=== PATIENT | male | born 1975 | race Caucasian/White ===

== ENCOUNTER 2016-10-20 11:14 | Emergency (ER) | payer SELFPAY ==
[~2016-10-20] VITALS: Wt 106.3 kg
[~2016-10-20 11:14] MED LIST: ALPR0.5T PO; CARI350T PO; DOCU-144 PO; HYDR-762 PO; IBUP800T25 PO; METH-70 PO; NAPR-688 PO; OMEP20CA9 PO; OXYC-279 PO; ROPI2TAB3 PO; TEMA30CA PO; TRAZ100T15 PO; ZOC20 PO
== END 2016-10-20 16:21 | disposition left against medical advice (07) ==
LOC: E/R 11:14
DX: Z53.21 Procedure and treatment not carried out due to patient leaving prior to being seen by health care provider (principal)

== ENCOUNTER 2017-01-13 12:15 | Emergency (ER) | payer SELFPAY ==
[~2017-01-13] VITALS: Ht 180.3 cm; Wt 110.0 kg
[~2017-01-13 12:15] MED LIST changes: +SIMV20TA2 PO; -ZOC20 PO
[2017-01-13 12:17] VITALS: Ht 180.3 cm; Wt 110.0 kg
== END 2017-01-13 18:40 | disposition left against medical advice (07) ==
LOC: E/R 12:15
DX: Z53.21 Procedure and treatment not carried out due to patient leaving prior to being seen by health care provider (principal)

== ENCOUNTER 2017-01-20 11:25 | Emergency (ER) | payer OTHER ==
[~2017-01-20] VITALS: Ht 165.1 cm; Wt 118.0 kg
[2017-01-20 11:28] VITALS: Ht 165.1 cm; Wt 118.0 kg
[2017-01-20] MEDS ORDERED: HYDR-902 PO (13:24)
[2017-01-20] MEDS ORDERED: HYDROCODONE/APAP (10/325) TAB PO ONE (13:30)
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
== END 2017-01-20 13:33 | disposition home or self-care (01) ==
LOC: FTE 11:25
DX: M54.40 Lumbago with sciatica, unspecified side (principal); F17.210 Nicotine dependence, cigarettes, uncomplicated
CPT/HCPCS: 99283

== ENCOUNTER 2017-01-25 19:02 | Emergency (ER) | payer OTHER ==
[~2017-01-25] VITALS: Ht 180.3 cm; Wt 107.7 kg
[~2017-01-25 19:02] MED LIST changes: +HYDR-902 PO
[2017-01-25 19:21] VITALS: Ht 180.3 cm; Wt 107.7 kg
[2017-01-25] MEDS ORDERED: KETOROLAC 60 MG INJ IM STA (20:58)
[2017-01-25] MEDS ORDERED: HYDR-902 PO (22:07)
--- NOTE | 2017-01-25 22:17 | ERD ---
ER Documentation Chief Complaint Date/Time DATE: 01/25/17 TIME: 22:11 Chief Complaint Pt with chronic back pain and neck pain , worst last 2 days HPI This is a 41-year-old male that presents to the ER with chronic back pain. States that back pain is severe and constant, he has rounded this Fred. Patient went to his primary care doctor however his primary care doctor was out of town. Patient denies any urinary bowel incontinence. He denies any fevers or chills. He denies any saddle like anesthesia. Patient has been trying over- the-counter pain medications for his pain however has not worked. ROS 12 point review of systems was done, all negative except per HPI. Medications Home Meds Active Scripts Hydrocodone/Acetaminophen (Fred 10-325 Tablet) 1 Each Tablet, 1 TAB PO Q6H Y for PAIN, #20 TAB Prov:SCOTT IZAGUIRRE 01/25/17 Hydrocodone/Acetaminophen (Fred 10-325 Tablet) 1 Each Tablet, 1 TAB PO Q6H Y for PAIN, #14 TAB Prov:FRANKY DE LEÓN MD 01/20/17 Methocarbamol* (Robaxin*) 750 Mg Tablet, 750 MG PO Q6H Y for MUSCLE SPASMS, #20 TAB Prov:NICK PEDRAZA DO 09/02/16 Naproxen* (Naproxen*) 500 Mg Tablet, 500 MG PO BID, #20 TAB Prov:NICK PEDRAZA DO 09/02/16 Oxycodone HCl/Acetaminophen (Percocet 5-325 mg Tablet) 1 Each Tablet, 1 EACH PO Q6, #20 TAB Prov:NICK PEDRAZA DO 09/02/16 Temazepam* (Temazepam*) 30 Mg Capsule, 30 MG PO HS Y for INSOMNIA, #10 CAP Prov:CHARAN JAIN PA-C 07/07/16 Alprazolam* (Xanax*) 0.5 Mg Tab, 0.5 MG PO QHS Y for ANXIETY, #10 TAB Prov:CHARAN JAIN PA-C 07/07/16 Ropinirole Hcl* (Ropinirole Hcl*) 2 Mg Tablet, 2 MG PO QHS, #10 TAB Prov:CHARAN JAIN PA-C 07/07/16 Trazodone Hcl* (Trazodone Hcl*) 100 Mg Tablet, 100 MG PO QHS, #30 TAB Prov:CHARAN JAIN PA-C 07/07/16 Docusate Sodium* (Colace*) 100 Mg Capsule, 100 MG PO TID, #30 CAP Prov:DMITRIYSCOTT Dayanna 03/05/16 Ibuprofen* (Motrin*) 800 Mg Tab, 800 MG PO Q6, #30 TAB Prov:CHARAN JAIN PA-C 03/30/15 Reported Medications Omeprazole* (Prilosec*) 20 Mg Capsule.dr, 20 MG PO DAILY, CAP 09/14/14 Carisoprodol* (Soma*) 350 Mg Tablet, 350 MG PO TID Y for PAIN AND/OR INFLAMMATION, TAB 09/14/14 Hydrocodone Bit-Acetaminophen* (Fred*) 10-325 Mg Tablet, 1 TAB PO TID Y for PAIN, TAB 07/20/14 Simvastatin (Simvastatin) 20 Mg Tablet, 20 MG PO HS, TAB 07/20/14 Allergies Allergies: Coded Allergies: Penicillins (Verified Allergy, Severe, ANAPHALAXIS, 01/20/17) PMhx/Soc History of Surgery: No Anesthesia Reaction: No Hx Neurological Disorder: Yes (SEIZURES, pt uses electric wheelchair) Hx Respiratory Disorders: No Hx Cardiac Disorders: Yes (HTN, HIGH CHOL) Hx Psychiatric Problems: Yes (ANXIETY) Hx Miscellaneous Medical Probl: Yes (Multiple herniated disc in low back, Knee pain, neck prob; uti) Hx Alcohol Use: Yes (social) Hx Substance Use: No Hx Tobacco Use: Yes (3 cig/day) Smoking Status: Current every day smoker Physical Exam Vitals Vital Signs Date Time Temp Pulse Resp B/P Pulse Ox O2 Delivery O2 Flow Rate FiO2 01/25/17 19:21 99.6 104 14 131/86 98 Physical Exam GENERAL: Patient is in wheelchair, in no acute distress. NECK: C-spine is soft and supple. There is no cervical lymphadenopathy. CHEST: Clear to auscultation bilaterally. There are no rales, wheezes or rhonchi. HEART: Regular rate and rhythm. No murmurs, clicks, rubs or gallops. ABDOMEN: Soft, nontender and nondistended BACK: No midline or flank tenderness. Tense paraspinal muscles. Negative leg raise test. No step- offs. EXTREMITIES: Equal pulses bilaterally. There is no peripheral clubbing, cyanosis or edema. No focal swelling or erythema. Full range of motion. Grossly neurovascularly intact. NEURO: Alert and oriented. Cranial nerves II through XII are intact. SKIN: There is no apparent rash or petechia. The skin is warm and dry. Results 24 hrs Current Medications Medications (Trade) Dose Ordered Sig/Alexander Route PRN Reason Start Time Stop Time Status Last Admin Dose Admin Ketorolac Tromethamine (Toradol) 60 mg ONCE STAT IM 01/25/17 20:58 01/25/17 20:59 DC 01/25/17 21:09 Procedures/MDM Differential Diagnosis includes but is not limited to back strain, vertebral fracture, epidural abscess, cauda equina, herniated disc, AAA rupture, kidney stones, UTI, pyelonephritis. Patient does have chronic back pain. I did review patient's cures report and patient gets Fred once a month written by the same doctor and feels at the same pharmacy. Patient was given a shot of Toradol in the ER without any complications. He will be sent with Fred. Needs to follow-up with his primary care doctor for any refills. He should return to the ER for worsening symptoms. My medical decision making was shared with the patient he understands and agrees with plan. Departure Diagnosis: Primary Impression: Back pain Condition: Stable Patient Instructions: Back Pain (Acute Or Chronic) Referrals: MARNIE REGAN MD (PCP) Additional Instructions: Call your primary care doctor TOMORROW for an appointment during the next 1-2 days.See the doctor sooner or return here if your condition worsens before your appointment time. SCOTT IZAGUIRRE January 25, 2017 22:17
== END 2017-01-25 22:25 | disposition home or self-care (01) ==
LOC: FTE 19:02
DX: M54.9 Dorsalgia, unspecified (principal); I10 Essential (primary) hypertension; F17.210 Nicotine dependence, cigarettes, uncomplicated
CPT/HCPCS: 96372; J1885; Z7502

== ENCOUNTER 2017-01-29 13:35 | Emergency (ER) | payer OTHER ==
[~2017-01-29] VITALS: Ht 180.3 cm; Wt 106.8 kg
[2017-01-29 13:39] VITALS: Ht 180.3 cm; Wt 106.8 kg
[2017-01-29] MEDS ORDERED: ONDANSETRON 4 MG INJ IV STA (14:00)
[2017-01-29] MEDS ORDERED: morphine 4 MG/ML VIAL IV STA (14:00)
[2017-01-29] MEDS ORDERED: SOD CHLORIDE 0.9% 1,000 ML IV STA (14:00)
[2017-01-29] MEDS ORDERED: BARIUM SULF 2% 450 ML BTL (BERRY SMOOTHIE) PO ONE (14:30)
[2017-01-29 14:55] LABS: ADD SCAN DIFF NO
[2017-01-29 14:57] LABS: BASOPHILS % 0.3 % (0.0-2.0); EOSINOPHILS % 0.5 % (0.0-7.0); HEMATOCRIT 41.9 % (42.0-52.0); HEMOGLOBIN 14.3 g/dl (14.0-18.0); LYMPHOCYTES # 2.1 10^3/ul (0.8-2.9); LYMPHOCYTES % 23.7 % (15.0-51.0); MEAN CORPUSCULAR HEMOGLOBIN 32.9 pg (29.0-33.0); MEAN CORPUSCULAR HGB CONC 34.1 g/dl (32.0-37.0); MEAN CORPUSCULAR VOLUME 96.3 fl (82.0-101.0); MONOCYTE # 0.5 10^3/ul (0.3-0.9); MONOCYTES % 6.2 % (0.0-11.0); NEUTROPHILS % 68.5 % (39.0-77.0); PLATELET COUNT 350 10^3/UL (140-415); RED BLOOD COUNT 4.35 10^6/ul (4.70-6.10); RED CELL DISTRIBUTION WIDTH 12.2 % (11.5-14.5); WHITE BLOOD COUNT 8.7 10^3/ul (4.8-10.8)
--- NOTE | 2017-01-29 15:10 | RADRPT ---
PROCEDURE: CT Abdomen and Pelvis without contrast. CLINICAL INDICATION: Abdominal pain TECHNIQUE: CT of the abdomen and pelvis was performed on a multi-detector scanner without IV contr ast. Coronal and sagittal images were reformatted from the axial data set. One or more of the foll owing dose reduction techniques were used: automated exposure control, adjustment of the mA and/or kV according to patient size, use of iterative reconstruction technique. CTDI = 23.56 mGy. DLP = 16 02.1 mGy-cm. COMPARISON: CT, 03/05/2016 FINDINGS: CT abdomen: The lung bases are clear. The heart size is normal, without pericardial effusion. Coronary arteria l calcification is noted. Liver, gallbladder, biliary tree, pancreas, spleen, adrenal glands and ri ght kidney are unremarkable. Small nonobstructive left renal calculus is identified, without ureter olithiasis or obstructive uropathy. The stomach is grossly unremarkable. The aorta is of normal caliber. There is no retroperitoneal lymphadenopathy. The kelton hepatis reg ion is clear. CT pelvis: No bowel obstruction, free intraperitoneal air or abscess is identified. There is no diverticulosis , diverticulitis or colitis. The appendix is well visualized and normal. Urinary bladder is unrema rkable. No pelvic mass, free fluid or lymphadenopathy is identified. Fat containing left inguinal hernia is again noted. The surrounding osseous structures are remarkable for degenerative spondylosis of the spine. No ost eolytic or osteoblastic lesion is detected. IMPRESSION: 1. Coronary arterial calcification is noted. 2. Small nonobstructive left renal calculus is seen, without ureterolithiasis or obstructive uropat hy. 3. Fat-containing left inguinal hernia is noted, without incarceration. 4. No mass, lymphadenopathy, or focal acute inflammatory process is identified. RPTAT: RR .Carlito Gonzalez MD, MD Date Time Electronically viewed and signed by .Carlito Gonzalez MD, MD on 01/29/2017 15:10 .R/
[2017-01-29 15:11] LABS: ALBUMIN 4.9 g/dl (3.3-4.9)
[2017-01-29 15:12] LABS: POTASSIUM 3.6 mmol/L (3.5-5.1)
[2017-01-29 15:14] LABS: ALBUMIN/GLOBULIN RATIO 1.28; BILIRUBIN,INDIRECT 0.2 mg/dl (0-1.1); BILIRUBIN,TOTAL 0.2 mg/dl (0.2-1.3); CALCIUM 9.9 mg/dl (8.4-10.2); CREATININE 0.71 mg/dl (0.61-1.24); TOTAL PROTEIN 8.7 g/dl (6.1-8.1)
[2017-01-29] MEDS ORDERED: KETOROLAC 30 MG INJ IV STA (15:14)
[2017-01-29 15:17] LABS: URINE BLOOD (Dip) POC Trace-lysed (NEGATIVE)
[2017-01-29 15:28] LABS: ADD UMIC YES; URINE BILIRUBIN (Dip) NEGATIVE (NEGATIVE); URINE BLOOD (Dip) TRACE (NEGATIVE); URINE COLOR LT. YELLOW (YELLOW); URINE GLUCOSE (Dip) NEGATIVE (NEGATIVE); URINE KETONES (Dip) NEGATIVE (NEGATIVE); URINE LEUKOCYTE ESTERASE (Dip) NEGATIVE (NEGATIVE); URINE NITRITE (Dip) NEGATIVE (NEGATIVE); URINE TOTAL PROTEIN (Dip) NEGATIVE (NEGATIVE); URINE UROBILINOGEN (Dip) 0.2 E.U./dL (0.1-1.0)
[2017-01-29 15:38] LABS: URINE RBCS 0-2 /HPF (0)
[2017-01-29] MEDS ORDERED: morphine 10 MG INJ IV ONE (16:00)
--- NOTE | 2017-01-29 16:03 | ERD ---
ER Documentation Chief Complaint Date/Time DATE: 01/29/17 TIME: 15:52 Chief Complaint AP X [address] LABOY HPI 41-year-old male patient with a past medical history of chronic back pain, HTN, hypercholesterolemia presents to the ED complaining of right lower abdominal pain as well as right testicular pain that worsened in the last 4 days. Patient reports that his abdominal pain started about 6 months ago intermittently. States that he went to follow-up with Dr. Laboy his senior procurement specialist and was sent here to obtain a CT of the abdomen and pelvis. Reports that he has some nausea and a few episodes of nonbilious nonbloody vomiting. Denies any fever, diarrhea, chest pain, shortness of breath, penile discharge, dysuria, urgency, frequency, hematuria. ROS All systems reviewed and are negative except as per history of present illness. Medications Home Meds Active Scripts Hydrocodone/Acetaminophen ([place] 10-325 Tablet) 1 Each Tablet, 1 TAB PO Q6H Y for PAIN, #10 TAB Prov:SARATH HERRERA DO 02/01/17 Hydrocodone/Acetaminophen ([place] 10-325 Tablet) 1 Each Tablet, 1 TAB PO Q6H Y for PAIN, #7 TAB Prov:GARIMA NGO PA-C 01/29/17 Ondansetron (Ondansetron Odt) 4 Mg Tab.rapdis, 4 MG PO Q6H Y for NAUSEA AND/OR VOMITING, #10 TAB Prov:GARIMA NGO PA-C 01/29/17 Hydrocodone/Acetaminophen ([place] 10-325 Tablet) 1 Each Tablet, 1 TAB PO Q6H Y for PAIN, #20 TAB Prov:SCOTT IZAGUIRRE 01/25/17 Hydrocodone/Acetaminophen ([place] 10-325 Tablet) 1 Each Tablet, 1 TAB PO Q6H Y for PAIN, #14 TAB Prov:FRANKY LONDONO MD 01/20/17 Methocarbamol* (Robaxin*) 750 Mg Tablet, 750 MG PO Q6H Y for MUSCLE SPASMS, #20 TAB Prov:NICK PEDRAZA DO 09/02/16 Naproxen* (Naproxen*) 500 Mg Tablet, 500 MG PO BID, #20 TAB Prov:NICK PEDRAZA DO 09/02/16 Oxycodone HCl/Acetaminophen (Percocet 5-325 mg Tablet) 1 Each Tablet, 1 EACH PO Q6, #20 TAB Prov:NICK PEDRAZA DO 09/02/16 Temazepam* (Temazepam*) 30 Mg Capsule, 30 MG PO HS Y for INSOMNIA, #10 CAP Prov:CHARAN JAINC 07/07/16 Alprazolam* (Xanax*) 0.5 Mg Tab, 0.5 MG PO QHS Y for ANXIETY, #10 TAB Prov:CHARAN JAINC 07/07/16 Ropinirole Hcl* (Ropinirole Hcl*) 2 Mg Tablet, 2 MG PO QHS, #10 TAB Prov:CHARAN JAIN PA-C 07/07/16 Trazodone Hcl* (Trazodone Hcl*) 100 Mg Tablet, 100 MG PO QHS, #30 TAB Prov:CHARAN JAIN PA-C 07/07/16 Docusate Sodium* (Colace*) 100 Mg Capsule, 100 MG PO TID, #30 CAP Prov:SCOTT IZAGUIRRE 03/05/16 Ibuprofen* (Motrin*) 800 Mg Tab, 800 MG PO Q6, #30 TAB Prov:CHARAN JAIN PA-C 03/30/15 Reported Medications Omeprazole* (Prilosec*) 20 Mg Capsule.dr, 20 MG PO DAILY, CAP 09/14/14 Carisoprodol* (Soma*) 350 Mg Tablet, 350 MG PO TID Y for PAIN AND/OR INFLAMMATION, TAB 09/14/14 Hydrocodone Bit-Acetaminophen* ([place]*) 10-325 Mg Tablet, 1 TAB PO TID Y for PAIN, TAB 07/20/14 Simvastatin (Simvastatin) 20 Mg Tablet, 20 MG PO HS, TAB 07/20/14 Allergies Allergies: Coded Allergies: Penicillins (Verified Allergy, Severe, ANAPHALAXIS, 01/29/17) PMhx/Soc History of Surgery: No Anesthesia Reaction: No Hx Neurological Disorder: Yes (SEIZURES, pt uses electric wheelchair) Hx Respiratory Disorders: No Hx Cardiac Disorders: Yes (HTN, HIGH CHOL) Hx Psychiatric Problems: Yes (ANXIETY) Hx Miscellaneous Medical Probl: Yes (Multiple herniated disc in low back, Knee pain, neck prob; uti) Hx Alcohol Use: Yes (social) Hx Substance Use: No Hx Tobacco Use: Yes (3 cig/day) Smoking Status: Light tobacco smoker Physical Exam Vitals Vital Signs Date Time Temp Pulse Resp B/P Pulse Ox O2 Delivery O2 Flow Rate FiO2 01/29/17 13:39 99.1 115 22 165/88 96 Physical Exam Const: [id number], well-nourished. In no acute distress. Head: Atraumatic, normocephalic Eyes: Normal Conjunctiva without injection. No purulent discharge. ENT: Normal external ear, nose. Moist oropharynx without tonsillar exudates. Non -erythematous pharynx. Uvula midline. No drooling. No trismus. Neck: No cervical midline tenderness. Full range of motion. No meningismus. No cervical lymphadenopathy. No JVD. Resp: Clear to auscultation bilaterally. No wheezing, rhonchi, rales, or crackles. No accessory muscle use. No retractions. Cardio: Regular rate and rhythm. No murmurs, rubs or gallops. Abd: Soft, right groin tenderness, right lower quadrant tenderness, non distended. Normal bowel sounds. No palpable masses. No rebound tenderness. No guarding. Negative McBurney's point. Negative psoas sign. Negative obturator sign. : Circumcised penis. No paraphimosis. No phimosis. No hernias. No warmth to touch. No erythema. Slight tenderness palpation of the right testicle. Skin: No petechiae or rashes Back: No midline tenderness. No CVA tenderness. Ext: No cyanosis, or edema. Neur: Awake and alert. Normal gait. Normal coordination. Psych: Normal Mood and Affect Results 24 hrs Laboratory Tests Test 01/29/17 14:25 01/29/17 15:05 01/29/17 15:18 White Blood Count 8.710^3/ul Red Blood Count 4.3510^6/ul Hemoglobin 14.3g/dl Hematocrit 41.9% Mean Corpuscular Volume 96.3fl Mean Corpuscular Hemoglobin 32.9pg Mean Corpuscular Hemoglobin Concent 34.1g/dl Red Cell Distribution Width 12.2% Platelet Count 37809^3/UL Mean Platelet Volume 10.0fl Neutrophils % 68.5% Lymphocytes % 23.7% Monocytes % 6.2% Eosinophils % 0.5% Basophils % 0.3% Nucleated Red Blood Cells % 0.0/100WBC Neutrophils # 6.010^3/ul Lymphocytes # 2.110^3/ul Monocytes # 0.510^3/ul Eosinophils # 0.010^3/ul Basophils # 0.010^3/ul Nucleated Red Blood Cells # 0.010^3/ul Sodium Level 139mmol/L Potassium Level 3.6mmol/L Chloride Level 97mmol/L Carbon Dioxide Level 25mmol/L Anion Gap 21 Blood Urea Nitrogen 8mg/dl Creatinine 0.71mg/dl Glucose Level 147mg/dl Calcium Level 9.9mg/dl Total Bilirubin 0.2mg/dl Direct Bilirubin 0.00mg/dl Indirect Bilirubin 0.2mg/dl Aspartate Amino Transf (AST/SGOT) 18IU/L Alanine Aminotransferase (ALT/SGPT) 31IU/L Alkaline Phosphatase 89IU/L Total Protein 8.7g/dl Albumin 4.9g/dl Globulin 3.80g/dl Albumin/Globulin Ratio 1.28 Lipase 40U/L Urine Color LT. YELLOW Urine Clarity CLEAR Urine pH 6.0 Urine Specific [place] 1.010 Urine Ketones NEGATIVE Urine Nitrite NEGATIVE Urine Bilirubin NEGATIVE Urine Urobilinogen 0.2 E.U./dL Urine Leukocyte Esterase NEGATIVE Urine Microscopic RBC 0-2/HPF Urine Microscopic WBC NONE SEEN/HPF Urine Epithelial Cells RARE Urine Hemoglobin TRACE Urine Glucose NEGATIVE% Urine Total Protein NEGATIVE Bedside Urine pH (LAB) 6.5 Bedside Urine Protein (LAB) Negative Bedside Urine Glucose (UA) Negative Bedside Urine Ketones (LAB) Negative Bedside Urine Blood Trace-lysed Bedside Urine Nitrite (LAB) Negative Bedside Urine Leukocyte Esterase (L Negative Current Medications Medications (Trade) Dose Ordered Sig/Alexander Route PRN Reason Start Time Stop Time Status Last Admin Dose Admin Sodium Chloride (NS) 1,000 ml @ 1,000 mls/hr Q1H STAT IV 01/29/17 14:00 01/29/17 14:59 DC 01/29/17 14:38 Morphine Sulfate (morphine) 4 mg ONCE STAT IV 01/29/17 14:00 01/29/17 14:03 DC 01/29/17 14:36 Ondansetron HCl (Zofran Inj) 4 mg ONCE STAT IV 01/29/17 14:00 01/29/17 14:03 DC 01/29/17 14:35 Barium Sulfate (Readi-Cat 2 ( [place] )) 450 ml ONCE ONCE PO 01/29/17 14:30 01/29/17 14:31 Cancel Ketorolac Tromethamine (Toradol) 30 mg ONCE STAT IV 01/29/17 15:14 01/29/17 15:16 DC 01/29/17 15:20 Morphine Sulfate (morphine) 6 mg ONCE ONCE IV 01/29/17 16:00 01/29/17 16:01 DC 01/29/17 16:54 Procedures/MDM This is a 41-year-old male patient with a past medical history of chronic back pain, HTN, hypercholesterolemia presents to the ED complaining of right lower quadrant and right testicular pain that worsened in last 4 days. Patient is afebrile and nontoxic-appearing. Patient has normal vital signs. Patient was further worked up with CBC, CMP, lipase, UA, CT of abdomen and pelvis without contrast. Patient was sent here to have p.o. contrast however this was discussed with the radiologist on-call, Dr. Davis who stated that there is no need for p.o. contrast at this time. Therefore CT of the abdomen and pelvis without contrast was ordered. Patient's pain and symptoms have improved after treatment with 4 mg IV morphine, 30 mg IV ketorolac, 6 mg IV morphine, 1 L normal saline, 4 mg IV Zofran. CBC: No leukocytosis. No e/o of systemic infection. No e/o anemia. CMP: No e/o severe acidosis, alkalosis, renal failure, diabetic ketoacidosis, liver disease Lipase within normal limits. Urine: No leukocyte esterase, no nitrites, trace hematuria. PROCEDURE: CT Abdomen and Pelvis without contrast. CLINICAL INDICATION: Abdominal pain TECHNIQUE: CT of the abdomen and pelvis was performed on a multi-detector scanner without IV contrast. Coronal and sagittal images were reformatted from the axial data set. One or more of the following dose reduction techniques were used: automated exposure control, adjustment of the mA and/or kV according to patient size, use of iterative reconstruction technique. CTDI = 23.56 mGy. DLP = 1602.1 mGy-cm. COMPARISON: CT, 03/05/2016 FINDINGS: CT abdomen: The lung bases are clear. The heart size is normal, without pericardial effusion. Coronary arterial calcification is noted. Liver, gallbladder, biliary tree, pancreas, spleen, adrenal glands and right kidney are unremarkable. Small nonobstructive left renal calculus is identified, without ureterolithiasis or obstructive uropathy. The stomach is grossly unremarkable. The aorta is of normal caliber. There is no retroperitoneal lymphadenopathy. The kelton hepatis region is clear. CT pelvis: No bowel obstruction, free intraperitoneal air or abscess is identified. There is no diverticulosis, diverticulitis or colitis. The appendix is well visualized and normal. Urinary bladder is unremarkable. No pelvic mass, free fluid or lymphadenopathy is identified. Fat containing left inguinal hernia is again noted. The surrounding osseous structures are remarkable for degenerative spondylosis of the spine. No osteolytic or osteoblastic lesion is detected. IMPRESSION: 1. Coronary arterial calcification is noted. 2. Small nonobstructive left renal calculus is seen, without ureterolithiasis or obstructive uropathy. 3. Fat-containing left inguinal hernia is noted, without incarceration. 4. No mass, lymphadenopathy, or focal acute inflammatory process is identified. PROCEDURE: Scrotal ultrasound CLINICAL INDICATION: Right scrotal pain. TECHNIQUE: Scrotal ultrasound was performed with sagittal and transverse views. Prasad scale and color imaging was performed. Images were reviewed on high resolution PACS monitors. COMPARISON: None available FINDINGS: The right testicle measures 4.6 x 2.0 x 3.1 cm. The left testicle measures 4.0 x 2.2 x 2.9 cm. There is normal size and echogenicity and morphology bilaterally. There is normal blood flow seen bilaterally. The epididymi are normal. There is a tiny left-sided hydrocele. There is a left-sided varicocele. The soft tissues are unremarkable. No mass or cyst or other abnormality is seen. IMPRESSION: 1. Left-sided varicocele. 2. Small left-sided hydrocele. 3. Symmetrically normal testes and epididymi. Patient is aware of his nonobstructive left renal nephrolithiasis as well as left inguinal hernia. There is no incarceration or strangulation noted at this time. It is reproducible. Low suspicion for testicular torsion, gastritis, GERD, peptic ulcer disease, cholecystitis, choledocholithiasis, cholangitis, pancreatitis, appendicitis, bowel obstruction, ileus, volvulus, nephrolithiasis , pyelonephritis, hepatitis, perforated viscus, diverticulitis, acute abdomen, mesenteric ischemia or other emergent conditions. Discussed with my supervising physician, Dr. Londono who agreed with the management and discharge plan. Discharge medications: Eloise Hameed Follow up with primary care physician in 1-2 days for referral to senior procurement specialist and chronic pain specialist. Instructed patient to return to the ED sooner for any worsening symptoms. Patient's questions were answered. Patient understood and agreed with discharge plan. Patient discharged stable. Departure Diagnosis: Primary Impression: Abdominal pain Abdominal location: right lower quadrant Qualified Code: R10.31 - Right lower quadrant abdominal pain Additional Impression: Testicular pain, right Condition: Stable Patient Instructions: Abdominal Pain Referrals: ARTIE LABOY MD [facility] YOU HAVE RECEIVED A MEDICAL SCREENING EXAM AND THE RESULTS INDICATE THAT YOU DO NOT HAVE A CONDITION THAT REQUIRES URGENT TREATMENT IN THE EMERGENCY DEPARTMENT. FURTHER EVALUATION AND TREATMENT OF YOUR CONDITION CAN WAIT UNTIL YOU ARE SEEN IN YOUR DOCTORS OFFICE WITHIN THE NEXT 1-2 DAYS. IT IS YOUR RESPONSIBILITY TO MAKE AN APPOINTMENT FOR FOLOW-UP CARE. IF YOU HAVE A PRIMARY DOCTOR --you should call your primary doctor and schedule an appointment IF YOU DO NOT HAVE A PRIMARY DOCTOR YOU CAN CALL OUR PHYSICIAN REFERRAL HOTLINE AT IF YOU CAN NOT AFFORD TO SEE A PHYSICIAN YOU CAN CHOSE FROM THE FOLLOWING [facility] [address] [facility]. [facility] [address] [facility]. [facility] [address] [facility]. [facility] [address] [facility]. [facility] [address] [facility]. [facility]. [address] [facility]. [facility] YOU HAVE RECEIVED A MEDICAL SCREENING EXAM AND THE RESULTS INDICATE THAT YOU DO NOT HAVE A CONDITION THAT REQUIRES URGENT TREATMENT IN THE EMERGENCY DEPARTMENT. FURTHER EVALUATION AND TREATMENT OF YOUR CONDITION CAN WAIT UNTIL YOU ARE SEEN IN YOUR DOCTORS OFFICE WITHIN THE NEXT 1-2 DAYS. IT IS YOUR RESPONSIBILITY TO MAKE AN APPOINTMENT FOR FOLOW-UP CARE. IF YOU HAVE A PRIMARY DOCTOR --you should call your primary doctor and schedule and appointment IF YOU DO NOT HAVE A PRIMARY DOCTOR YOU CAN CALL OUR PHYSICIAN REFERRAL HOTLINE AT . IF YOU CAN NOT AFFORD TO SEE A PHYSICIAN YOU CAN CHOSE FROM THE FOLLOWING [facility]: [facility] [address] [place] [address] [facility] [address] [place] [address] [facility] [address] [place] [address] [facility] URGENT [facility]SPECIALTIES Additional Instructions: Call your primary care doctor TOMORROW for an appointment during the next 2-3 days.See the doctor sooner or return here if your condition worsens before your appointment time. GARIMA NGO PA-C January 29, 2017 16:03
[2017-01-29] MEDS ORDERED: HYDR-906 PO (16:09)
[2017-01-29] MEDS ORDERED: ONDA4TAB14 PO (16:09)
[2017-01-29] MEDS ORDERED: HYDR-902 PO (16:13)
--- NOTE | 2017-01-29 16:56 | RADRPT ---
PROCEDURE: Scrotal ultrasound CLINICAL INDICATION: Right scrotal pain. TECHNIQUE: Scrotal ultrasound was performed with sagittal and transverse views. Prasad scale and co rosa elena imaging was performed. Images were reviewed on high resolution PACS monitors. COMPARISON: None available FINDINGS: The right testicle measures 4.6 x 2.0 x 3.1 cm. The left testicle measures 4.0 x 2.2 x 2.9 cm. There is normal size and echogenicity and morphology bilaterally. There is normal blood flow seen bilaterally. The epididymi are normal. There is a tiny left-sided hydrocele. There is a left-sided varicocele. The soft tissues are unremarkable. No mass or cyst or other abnormality is seen. IMPRESSION: 1. Left-sided varicocele. 2. Small left-sided hydrocele. 3. Symmetrically normal testes and epididymi. RPTAT: [facility] Physician Chito Date Time Electronically viewed and signed by Physician Chito on 01/29/2017 16:56 /
[2017-01-29 18:25] VITALS: BP 157/79; PULSE 77; RESP 18; TEMP 98.3
== END 2017-01-29 18:27 | disposition home or self-care (01) ==
LOC: FTE 13:35
DX: R10.31 Right lower quadrant pain (principal); N50.811 Right testicular pain; R11.2 Nausea with vomiting, unspecified; I10 Essential (primary) hypertension; F17.210 Nicotine dependence, cigarettes, uncomplicated
CPT/HCPCS: 74176; 76870; 80053; 81001; 83690; 85025; J1885; J2270; J2405; J7030; 36415; 81003; 96374; 96375; 96376

== ENCOUNTER 2017-02-01 12:23 | Emergency (ER) | payer OTHER ==
[~2017-02-01] VITALS: Wt 90.0 kg
[~2017-02-01 12:23] MED LIST changes: +ONDA4TAB14 PO
[2017-02-01] MEDS ORDERED: HYDROCODONE/APAP (10/325) TAB PO ONE (16:30)
[2017-02-01 16:35] LABS: URINE BLOOD (Dip) POC 2+ (NEGATIVE)
[2017-02-01] MEDS ORDERED: HYDR-902 PO (16:43)
--- NOTE | 2017-02-01 16:43 | ERD ---
ER Documentation Chief Complaint Date/Time DATE: 02/01/17 TIME: 16:39 Chief Complaint MULTIPLE COMPLAINTS REFUSING TO EXPLAIN OUTSIDE HPI This is a 41-year-old male who presents to the emergency room for the third time in the past 7 days for evaluation of multiple different complaints. The patient is complaining today of back pain. He states that he did have testicular pain a few days ago and had an ultrasound of the testicle. The patient states that he does have chronic pain in his pain management physician is "out of the country "so he came to the emergency room for evaluation. The patient states his pain is achy pain which is improved with [place] or Percocet. The patient is denying any fevers or chills associated with this pain. The patient has had a CT of the abdomen and pelvis within the past week which did not show any acute intra-abdominal processes which required immediate intervention ROS All systems reviewed and are negative except as per history of present illness. Medications Home Meds Active Scripts Hydrocodone/Acetaminophen ([place] 10-325 Tablet) 1 Each Tablet, 1 TAB PO Q6H Y for PAIN, #7 TAB Prov:GARIMA NGO PA-C 01/29/17 Ondansetron (Ondansetron Odt) 4 Mg Tab.rapdis, 4 MG PO Q6H Y for NAUSEA AND/OR VOMITING, #10 TAB Prov:GARIMA NGO PA-C 01/29/17 Hydrocodone/Acetaminophen ([place] 10-325 Tablet) 1 Each Tablet, 1 TAB PO Q6H Y for PAIN, #20 TAB Prov:SCOTT IZAGUIRRE 01/25/17 Hydrocodone/Acetaminophen ([place] 10-325 Tablet) 1 Each Tablet, 1 TAB PO Q6H Y for PAIN, #14 TAB Prov:FRANKY DE LEÓN MD 01/20/17 Methocarbamol* (Robaxin*) 750 Mg Tablet, 750 MG PO Q6H Y for MUSCLE SPASMS, #20 TAB Prov:NICK PEDRAZA DO 09/02/16 Naproxen* (Naproxen*) 500 Mg Tablet, 500 MG PO BID, #20 TAB Prov:NICK PEDRAZA DO 09/02/16 Oxycodone HCl/Acetaminophen (Percocet 5-325 mg Tablet) 1 Each Tablet, 1 EACH PO Q6, #20 TAB Prov:NICK PEDRAZA 09/02/16 Temazepam* (Temazepam*) 30 Mg Capsule, 30 MG PO HS Y for INSOMNIA, #10 CAP Prov:CHARAN JAINC 07/07/16 Alprazolam* (Xanax*) 0.5 Mg Tab, 0.5 MG PO QHS Y for ANXIETY, #10 TAB Prov:CHARAN JAIN PA-C 07/07/16 Ropinirole Hcl* (Ropinirole Hcl*) 2 Mg Tablet, 2 MG PO QHS, #10 TAB Prov:CHARAN JAIN PA-C 07/07/16 Trazodone Hcl* (Trazodone Hcl*) 100 Mg Tablet, 100 MG PO QHS, #30 TAB Prov:CHARAN JAIN PA-C 07/07/16 Docusate Sodium* (Colace*) 100 Mg Capsule, 100 MG PO TID, #30 CAP Prov:SCOTT IZAGUIRRE 03/05/16 Ibuprofen* (Motrin*) 800 Mg Tab, 800 MG PO Q6, #30 TAB Prov:CHARAN JAIN 03/30/15 Reported Medications Omeprazole* (Prilosec*) 20 Mg Capsule.dr, 20 MG PO DAILY, CAP 09/14/14 Carisoprodol* (Soma*) 350 Mg Tablet, 350 MG PO TID Y for PAIN AND/OR INFLAMMATION, TAB 09/14/14 Hydrocodone Bit-Acetaminophen* ([place]*) 10-325 Mg Tablet, 1 TAB PO TID Y for PAIN, TAB 07/20/14 Simvastatin (Simvastatin) 20 Mg Tablet, 20 MG PO HS, TAB 07/20/14 Allergies Allergies: Coded Allergies: Penicillins (Verified Allergy, Severe, ANAPHALAXIS, 01/29/17) PMhx/Soc History of Surgery: No Anesthesia Reaction: No Hx Neurological Disorder: Yes (SEIZURES, pt uses electric wheelchair) Hx Respiratory Disorders: No Hx Cardiac Disorders: Yes (HTN, HIGH CHOL) Hx Psychiatric Problems: Yes (ANXIETY) Hx Miscellaneous Medical Probl: Yes (Multiple herniated disc in low back, Knee pain, neck prob; uti) Hx Alcohol Use: Yes (social) Hx Substance Use: No Hx Tobacco Use: Yes (3 cig/day) Physical Exam Vitals Vital Signs Date Time Temp Pulse Resp B/P Pulse Ox O2 Delivery O2 Flow Rate FiO2 02/01/17 12:26 98.0 79 18 140/92 99 Physical Exam Const: Disheveled appearance, wheelchair-bound Head: Atraumatic Eyes: Normal Conjunctiva ENT: Normal External Ears, Nose and Mouth. Neck: Full range of motion..~ No meningismus. Resp: Clear to auscultation bilaterally Cardio: Regular rate and rhythm, no murmurs Abd: Soft, non tender, non distended. Normal bowel sounds Skin: Jaramillo catheter in place, no petechiae or rashes Back: No midline or flank tenderness Ext: No cyanosis, or edema Neur: Awake and alert Psych: Normal Mood and Affect Results 24 hrs Laboratory Tests Test 02/01/17 16:36 Bedside Urine pH (LAB) 6.5 Bedside Urine Protein (LAB) Negative Bedside Urine Glucose (UA) Negative Bedside Urine Ketones (LAB) Negative Bedside Urine Blood 2+ Bedside Urine Nitrite (LAB) Negative Bedside Urine Leukocyte Esterase (L Negative Current Medications Medications (Trade) Dose Ordered Sig/Alexander Route PRN Reason Start Time Stop Time Status Last Admin Dose Admin Acetaminophen/ Hydrocodone Bitart ([place] (10/325)) 1 tab ONCE ONCE PO 02/01/17 16:30 02/01/17 16:31 DC Procedures/MDM This 41-year-old male presents to the emergency room for evaluation of back pain. The patient has been seen twice in the past week for the same. The patient was given a total of 34 tabs of [place] in the past week. I did evaluate the patient today and he was afebrile and hemodynamically stable. This patient recently had a testicular ultrasound which does not show any signs of torsion. CT the abdomen pelvis is shows kidney stone however no ureterolithiasis. This patient's urinalysis today is within normal limits. He was given [place], and advised him that coming to the emergency room for repeat narcotic medications is inappropriate. I advised him I will give him a prescription for [place] No. 10 and he needs to follow-up with his primary care physician to get further pain medication. This patient was upset that he was not getting more than 10 [place]'s and I explained to him that he is received approximately 34 [place]'s as in the past week and I am not comfortable writing him for more than 10 at this time Smoking Cessation Therapy: Pt. was lectured for greater than 3 minutes on the health risks of continued smoking and the benefits of cessation. Departure Diagnosis: Primary Impression: Back pain, chronic Additional Impressions: Multiple complaints Tobacco abuse Tobacco abuse counseling Condition: Stable SARATH HERRERA DO February 01, 2017 16:43
[2017-02-01 16:50] VITALS: BP 132/77; PULSE 86; RESP 20; TEMP 98.3
== END 2017-02-01 16:57 | disposition home or self-care (01) ==
LOC: E/R 12:23
DX: M54.9 Dorsalgia, unspecified (principal); F17.210 Nicotine dependence, cigarettes, uncomplicated; R40.2142 Coma scale, eyes open, spontaneous, at arrival to emergency department; R40.2252 Coma scale, best verbal response, oriented, at arrival to emergency department; R40.2362 Coma scale, best motor response, obeys commands, at arrival to emergency department; I10 Essential (primary) hypertension; Z71.6 Tobacco abuse counseling
CPT/HCPCS: 81003; Z7502; Z7610; 99283

== ENCOUNTER 2017-02-16 20:07 | Emergency (ER) | payer SELFPAY | END 2017-02-16 20:55 | disposition left against medical advice (07) | LOC: E/R 20:07 | DX: Z53.21 Procedure and treatment not carried out due to patient leaving prior to being seen by health care provider (principal) ==

== ENCOUNTER 2017-09-03 13:15 | Emergency (ER) | END 2017-09-03 15:21 | disposition home or self-care (01) ==

== ENCOUNTER 2017-11-02 18:01 | Emergency (ER) | END 2017-11-03 00:42 | disposition home or self-care (01) ==

== ENCOUNTER 2018-01-01 20:27 | Emergency (ER) | END 2018-01-01 21:15 | disposition home or self-care (01) ==

== ENCOUNTER 2018-04-14 14:41 | Emergency (ER) | END 2018-04-14 19:35 | disposition home or self-care (01) ==

== ENCOUNTER 2018-04-27 12:25 | Emergency (ER) | END 2018-04-27 16:36 | disposition left against medical advice (07) ==